=== PATIENT | male | born 1950 | race Caucasian/White ===

== ENCOUNTER 2022-12-24 08:00 | Outpatient (CLI) | payer OTHER, MEDICARE, BC ==
--- NOTE | 2022-12-24 18:09 | XRAY Report ---
PROCEDURE: Finger(s) LT INDICATIONS: LEFT 3RD MALLET FINGER TECHNIQUE: AP hand, 2 views of the third finger(s) acquired. COMPARISON: None. FINDINGS: Bones: No fractures or dislocations. No suspicious bony lesions. DIP dorsal marginal osteophyte and arthritic subchondral cysts noted. Soft tissues: No suspicious soft tissue calcifications or masses. IMPRESSION: Osteoarthritis, third DIP Reviewed by: Harshil Rivas MD on 12/24/2022 5:08 PM [email or web address] Approved by: Harshil Rivas MD on 12/24/2022 5:08 PM AKDT Station ID: [id number]
== END 2022-12-24 23:59 | disposition home or self-care (01) ==
LOC: DI.WOS 08:00
PROVIDERS: ATTEND Physician Assistant Surgical
DX: M19.042 Primary osteoarthritis, left hand (principal)